=== PATIENT | male | born 1955 | race Caucasian/White ===

== ENCOUNTER 2018-08-31 11:06 | Emergency (ER) | payer OTHER ==
[2018-08-31 12:39] VITALS: BP 92/53
[2018-08-31 13:04] LABS: Influenza A Molecular POSITIVE (Negative)
--- NOTE | 2018-08-31 13:12 | ED ---
Respiratory - HPI Summary HPI Summary: 63 yr old with onset of fever, chills, aches, coughing, runny nose since last night. Ill less than one day. Denies SOB. He feels like he has the flu. No other ill exposures. - History of Current Complaint Chief Complaint: UCRespiratory Stated Complaint: ACHEY, SORE THROAT Time Seen by Provider: 08/31/18 12:45 Pain Intensity: 7 - Allergy/Home Medications Allergies/Adverse Reactions: Allergies Allergy/AdvReac Type Severity Reaction Status Date / Time No Known Allergies Allergy Verified 08/31/18 12:32 Home Medications: Home Medications Famotidine TAB* [Pepcid 20 MG TAB*] 40 mg PO BEDTIME 08/31/18 [History Confirmed 08/31/18] Glimepiride (NF) 2 mg PO QAM 08/31/18 [History Confirmed 08/31/18] Lisinopril/HCTZ 20/12.5(NF) [Zestoretic 20/12.5(NF)] 1 tab PO DAILY 08/31/18 [ History Confirmed 08/31/18] Metformin ER (NF) 1,000 mg PO BID 08/31/18 [History Confirmed 08/31/18] Omeprazole CAP (NF) [Prilosec CAP* 20 MG] 20 mg PO DAILY 08/31/18 [History Confirmed 08/31/18] Pheniramine/P-Eph/Acetaminophn [Theraflu Flu & Sore Throa] 1 hannah PO Q4H PRN [History Confirmed 08/31/18] Pravastatin (NF) [Pravachol (NF)] 20 mg PO BEDTIME 08/31/18 [History Confirmed 08/31/18] Pregabalin [Lyrica] 75 mg PO TID 08/31/18 [History Confirmed 08/31/18] amLODIPine TAB* [Norvasc 5 mg TAB*] 5 mg PO DAILY 08/31/18 [History Confirmed ] PMH/Surg Hx/FS Hx/Imm Hx Endocrine/Hematology History: Reports: Hx Diabetes Cardiovascular History: Reports: Hx Hypertension - Surgical History Surgery Procedure, Year, and Place: right elbow 1995 Infectious Disease History: No Infectious Disease History: Denies: Traveled Outside the [place] in Last 30 Days - Family History Known Family History: Positive: None - Social History Lives: With Family Alcohol Use: Weekly Alcohol Amount: Ave. 8 Substance Use Type: Reports: None Smoking Status (MU): Never Smoked Tobacco Review of Systems Positive: Fever, Chills, Fatigue Positive: Sore Throat, Nasal Discharge Positive: Cough Positive: Myalgia All Other Systems Reviewed And Are Negative: Yes Physical Exam Triage Information Reviewed: Yes Vital Signs On Initial Exam: Initial Vitals Temp Pulse Resp BP Pulse Ox 99.2 F 80 30 92/53 97 08/31/18 12:31 08/31/18 12:31 08/31/18 12:31 08/31/18 12:31 08/31/18 12:31 Vital Signs Reviewed: Yes Appearance: Positive: Well-Appearing, No Pain Distress, Obese Skin: Positive: Warm, Skin Color Reflects Adequate Perfusion Head/Face: Positive: Normal Head/Face Inspection Eyes: Positive: EOMI, MARIA EUGENIA ENT: Positive: Pharyngeal erythema, Nasal congestion, Nasal drainage, TMs normal Neck: Positive: Nontender Respiratory/Lung Sounds: Positive: Clear to Auscultation, Breath Sounds Present Cardiovascular: Positive: RRR. Negative: Murmur Abdomen Description: Positive: Nontender. Negative: Distended Musculoskeletal: Positive: Strength/ROM Intact Neurological: Positive: Sensory/Motor Intact, Alert, Oriented to Person Place, Time, CN Intact II-III, Normal Gait, Speech Normal Psychiatric: Positive: Normal - Rudyard Coma Scale Best Eye Response: 4 - Spontaneous Best Motor Response: 6 - Obeys Commands Best Verbal Response: 5 - Oriented Coma Scale Total: 15 Diagnostics - Vital Signs Vital Signs Temp Pulse Resp BP Pulse Ox 08/31/18 12:31 99.2 F 80 30 92/53 97 - Laboratory Lab Results: Lab Results 08/31/18 Range/Units 12:59 Influenza A (Rapid) Positive A (Negative) Lab Statement: Any lab studies that have been ordered have been reviewed, and results considered in the medical decision making process. Disposition - Course Course Of Treatment: 63 yr old with influenza. Rx Tamiflu. - Diagnoses Provider Diagnoses: Influenza A Discharge - Sign-Out/Discharge Documenting (check all that apply): Patient Departure All imaging exams completed and their final reports reviewed: No Studies - Discharge Plan Condition: Good Disposition: HOME Prescriptions: Oseltamivir CAP* [Tamiflu CAP*] 75 mg PO BID #10 cap Patient Education Materials: Influenza (ED) Referrals: Sandy Banegas PA [Primary Care Provider] - 2 Days - Billing Disposition and Condition Condition: GOOD Disposition: Home
== END 2018-08-31 13:16 | disposition home or self-care (01) ==
LOC: UCCORT 11:06
DX: J10.1 Influenza due to other identified influenza virus with other respiratory manifestations (principal); E11.9 Type 2 diabetes mellitus without complications; I10 Essential (primary) hypertension; Z79.84 Long term (current) use of oral hypoglycemic drugs; Z79.899 Other long term (current) drug therapy
CPT/HCPCS: 99212; G0463